=== PATIENT | male | born 1940 | race Caucasian/White ===

== ENCOUNTER → 2018-12-02 | Outpatient (CLI) | payer MEDICARE, MEDICAID ==
--- NOTE | 2018-12-02 16:36 | CONS ---
Assessment/Plan Assessment/Plan Hospital Course (Demo Recall) 78-year-old male with past medical history of hypertension, arrhythmia, depression with end-stage osteoarthritis of both knees. The knee pain signi ficantly impacts his daily life. It is difficult for him to walk. He uses a walker at all times and can only walk at athe pain is constant and every day. Very slow pace. It is difficult for him to take care of himself. He lives by himself. He has failed conservative management including injections, gait aids, physical therapy. He does however currently smoke 4-5 cigarettes a day. Talking with him and his son he states that he is able to quit without a problem. I spoke to them that he will have the not have been smoking for minimum 6 weeks prior to surgery. In addition there may be an insurance issue regarding Medicare part A. The son is looking into this to rectify this. Plan: Smoking cessation Family to correct any insurance issues Follow-up in 4 weeks for further discussion about surgery and if it that time patient has not been smoking and the insurance issues have been resolved we can start the booking process. Consultation Date/Type/Reason Admit Date/Time Date of Consultation: Dec 02, 2018 Reason for Consultation Bilateral knee pain Date/Time of Note DATE: 12/02/18 TIME: 16:22 Hx of Present Illness Is a 78-year-old male with a chief complaint of right and left knee pain. The pain is equal in both knees. The pain began approximately years ago. The patient's pain is in the medial and posterior aspect of the right and left knee. Pain is not radiating to the lower leg. The pain is rated as a 8/10. Patient denies complaints of numbness or tingling. The pain is exacerbated by climbing stairs and ambulation. He uses a walker at all times. He can only walk very slowly. He has had injections in the past which have not helped. He has had physical therapy which has not helped. Of note she does smoke 4-5 cigarettes a day. States that he can easily quit if needed. ----- Duration: Years Injury: No Walking tolerance: 2 blocks Limp: Yes Support: Walker Swelling: Yes Crepitation: Yes Instability: No Stairs: Places both feet on a step before proceeding to next Physical Therapy: Yes, no relief Injections: Yes, no relief NSAID's: Contraindicated, hypertension Prior surgery: No Back pain: Yes Hip pain: No Risk of AVN : No Patient denies fever, chills, shortness of breath, chest pain, nausea/vomiting, constipation, diarrhea, numbness, and tingling. Past Medical History Hypertension Arrhythmia depression Subarachnoid hematoma Past Surgical History Evacuation of subarachnoid hematoma Family History Significant Family History: no pertinent family hx Social History Alcohol Use: none Smoking Status: Current every day smoker (4-5 cigarettes a day) Drug Use: none Exam/Review of Systems Exam Vitals Weight: 188 pounds Height: 5 foot 6 inches BMI: 30.3 Temperature: 98.4 Heart Rate: 54 Blood Pressure: 160/75 Respiratory Rate: 14 Exam General: Awake, alert, in no acute distress, pleasant and cooperative Heart: regular rhythm Lungs: breathing comfortably, no tachypnea or dyspnea MUSCULOSKELETAL: Right and Left Knee This is a well developed male who is alert, oriented times three and in no apparent distress. Skin is intact over the right and left knee as well as the lower extremity with no abrasions, lacerations, or ulcerations. Observation of the patient's gait reveals an antalgic gait with varus thrust. Frontal plane alignment is varus on the right and left knees. There is pain on palpation of medial joint line. The patient demonstrates grinding anteriorly with ROM. Range of motion: 10 extension to approximately 105 degrees on the right and 10-110 degrees on the left degrees of flexion. Collateral ligament testing reveals no instability with varus or valgus stress at 0 and 30 degrees of flexion. Negative Staci's and negative posterior drawer. Neurovascularly intact with 5/5 EHL/tibialis anterior/gastroc. Sensation intact to light touch in a sural, saphenous, deep peroneal, superficial peroneal, medial and lateral plantar nerve distribution. There is +1 pitting edema over the distal tibia. No venous stasis changes. Palpable, symmetric dorsalis pedis and posterior tibial pulses in both lower extremities. Hip examination normal Imaging Imaging The patient received a standard set of films today that were personally reviewed. Imaging included a standing bilateral knee AP, PA flexion, merchant views and a dedicated lateral of the affected knee: There is varus alignment of the knee. There is complete loss of joint space in all 3 compartment(s). There is extensive osteophyte formation. There is extensive subchondral sclerosis. There are subchondral cysts. Degenerative changes are most severe in the medial compartment(s) ASHLEE BALLARD MD Dec 02, 2018 16:33
--- NOTE | 2018-12-07 11:06 | RADRPT ---
PROCEDURE: XR Knee. CLINICAL INDICATION: Pain. TECHNIQUE: Bilateral knee x-rays, weightbearing AP, lateral, sunrise and oblique views. COMPARISON: None available. FINDINGS: Right knee: The bones are osteopenic. Severe joint space narrowing is seen within the medial, latera l and patellofemoral compartments. Bone on bone contact is observed. Articular surface sclerosis and osteophyte formation are also present. There are no joint erosions. A small joint effusion is observe d. Soft tissues are unremarkable. Left knee: The bones are osteopenic. Severe joint space narrowing is seen within the medial, lateral and patellofemoral compartments. Bone on bone contact is observed. Articular surface sclerosis and os teophyte formation are also present. There are no joint erosions. A small joint effusion is observed. Soft tissues are unremarkable. IMPRESSION: Severe bilateral tricompartmental knee osteoarthritis. RPTAT: [id number] .Nidhi Tovar MD, MD Date Time Electronically viewed and signed by .Nidhi Tovar MD, on 12/07/2018 11:06 .T/
== END | disposition home or self-care (01) ==
LOC: HKI 14:59
PROVIDERS: ATTEND Orthopaedic Surgery Adult Reconstructive Orthopaedic Surgery
DX: M17.0 Bilateral primary osteoarthritis of knee (principal); I10 Essential (primary) hypertension; F32.9 Major depressive disorder, single episode, unspecified; I49.9 Cardiac arrhythmia, unspecified; F17.210 Nicotine dependence, cigarettes, uncomplicated
CPT/HCPCS: 73564; G0463